=== PATIENT | female | born 1960 | race Two or more races ===

== ENCOUNTER 2023-03-27 19:52 | Emergency (ER) | payer BC ==
[~2023-03-27] VITALS: Ht 175.3 cm; Wt 99.8 kg
[2023-03-27 20:55] LABS: APPEARANCE,URINE SLIGHTLY CLOUDY (CLEAR); BILIRUBIN,URINE NEGATIVE (NEGATIVE); BLOOD, URINE 3+ Ery/uL (NEGATIVE); KETONES,URINE NEGATIVE (NEGATIVE); LEUKOCYTE ESTERASE ,URINE 3+ (NEGATIVE); NITRITE, URINE NEGATIVE (NEGATIVE); PROTEIN,URINE 2+ mg/dl (NEGATIVE); UGLUCOSE NEGATIVE (NEGATIVE); UROBILINOGEN,URINE 0.2 EU/dL (0.2)
[2023-03-27 20:57] LABS: COLOR,URINE OTHER (YELLOW)
[2023-03-27 20:59] LABS: ADD URINE CULTURE YES; BACTERIA,URINE 2+ /HPF (None Seen); RBC,URINE 51-80 /HPF (0-2); WBC,URINE 51-80 /HPF (0-3)
[2023-03-27] MEDS ORDERED: NITR100C6 PO (21:09)
[2023-03-27] MEDS ORDERED: PHEN-894 PO (21:09)
[2023-03-27] MEDS ORDERED: NITROFURANTOIN/MONOHYDRATE MACROCRYSTALS 100 MG CAPSULE ONE (21:13)
[2023-03-27 21:17] VITALS: BP 141/73; TEMP 97.8; O2SAT 97
[2023-03-27] MEDS ORDERED: NITROFURANTOIN/MONOHYDRATE MACROCRYSTALS 100 MG CAPSULE PO ONE (21:30)
[2023-03-27] MEDS ORDERED: PHENAZOPYRIDINE HCL 200 MG TABLET PO ONE (21:30)
== END 2023-03-27 21:17 | disposition home or self-care (01) ==
LOC: ER 20:19
DX: N39.0 Urinary tract infection, site not specified (principal); E03.9 Hypothyroidism, unspecified; Z60.2 Problems related to living alone
CPT/HCPCS: 81001; 87086-TC